=== PATIENT | female | born 1950 | race Two or more races ===

== ENCOUNTER 2017-10-10 13:42 | Emergency (ER) | payer SELFPAY ==
[~2017-10-10] VITALS: Ht 160 cm; Wt 60.0 kg
[2017-10-10] MEDS ORDERED: METF500T6 PO (13:50)
[2017-10-10] MEDS ORDERED: IBUPROFEN 600MG TABLET PO ONE (14:45)
[2017-10-10 15:04] VITALS: BP 145/94
== END 2017-10-10 19:34 | disposition home or self-care (01) ==
LOC: ER 13:42
DX: S82.291A Other fracture of shaft of right tibia, initial encounter for closed fracture (principal); M25.521 Pain in right elbow; I10 Essential (primary) hypertension; E11.9 Type 2 diabetes mellitus without complications; Z79.899 Other long term (current) drug therapy; W19.XXXA Unspecified fall, initial encounter; Y93.89 Activity, other specified; Y92.89 Other specified places as the place of occurrence of the external cause; Y99.8 Other external cause status
CPT/HCPCS: 29515; 73080; 73562; 73610; 73630; 82962; 99284

== ENCOUNTER 2021-02-19 13:31 | Inpatient (IN) | payer OTHER ==
[~2021-02-19] VITALS: Ht 157.5 cm; Wt 72.1 kg
[~2021-02-19 13:31] MED LIST: METF-414 PO
[2021-02-19] MEDS ORDERED: LIDOCAINE HCL 1% 20ML VIAL (Pyxis) INJ INFIL ONE (17:15)
[2021-02-19] MEDS ORDERED: LIDOCAINE HCL 1% 10 MG/ML 10ML VIAL IJ SCH (17:26)
[2021-02-19 18:13] LABS: BASOPHILS % 0.8 % (0.0-2.0); EOSINOPHILS % 14.1 % (0.0-5.0); HEMATOCRIT. 40.6 % (36.0-48.0); HEMOGLOBIN. 12.9 g/dL (12.0-16.0); MEAN CORPUSCULAR HEMOGLOBIN 26.8 pg (28.0-32.0); MEAN CORPUSCULAR VOLUME 84.7 fL (81.0-99.0); MEAN PLATELET VOLUME 7.2 fl (7.4-10.4); MONOCYTES % 3.5 % (2.0-8.0); NEUTROPHILS % 63.6 % (40.0-76.0); PLATELET 351 x1000/uL (130-400); RED BLOOD CELL COUNT 4.79 mill/uL (4.2-5.4); RED CELL DISTRIBUTION WIDTH 13.7 % (11.6-14.6)
[2021-02-19 18:20] LABS: CHLORIDE 105 mEq/L (98-107)
[2021-02-20] MEDS ORDERED: NALOXONE HCL 0.4MG/ML VIAL IV PRN (04:30)
[2021-02-20] MEDS: MORPHINE SULFATE 2 MG/ML CPJ (NOT FOR IM USE) IV PRN ×3 (04:45→17:48)
[2021-02-20 09:30] VITALS: BP 107/66
[2021-02-20] MEDS ORDERED: METF-873 MT (09:40)
[2021-02-20 09:47] VITALS: BP 107/66
[2021-02-20] MEDS ORDERED: HYDROCODONE/ACETAMINOPHEN 5/325MG TABLET PO PRN (11:00)
[2021-02-20] MEDS ORDERED: DOCUSATE SODIUM 100MG CAPSULE PO PRN (11:00)
[2021-02-20] MEDS ORDERED: NA PHOS,M-B/NA PHOS,DI-BA ENEMA 118ML PR PRN (11:00)
[2021-02-20] MEDS ORDERED: GUAIFENESIN 200MG/10ML SUGAR FREE UDC PO PRN (11:00)
[2021-02-20] MEDS ORDERED: LORAZEPAM 0.5MG TABLET PO PRN (11:00)
[2021-02-20] MEDS ORDERED: ACETAMINOPHEN 325MG TABLET PO PRN (11:00)
[2021-02-20] MEDS ORDERED: MAGNESIUM/ALUMINUM HYDROXIDE/SIMETHICONE 30ML UDC PO PRN (11:00)
[2021-02-20] MEDS ORDERED: IPRATROPIUM/ALBUTEROL 0.5-3(2.5)MG/3ML NEB NEB PRN (11:00)
[2021-02-20] MEDS ORDERED: DIPHENHYDRAMINE 50MG/ML VIAL IV PRN (11:00)
[2021-02-20] MEDS ORDERED: CEFTRIAXONE 1 G PREMIX 50 ML IV SCH (11:00)
[2021-02-20] MEDS ORDERED: ACETAMINOPHEN 650MG SUPP PR PRN (11:00)
[2021-02-20] MEDS ORDERED: CLONIDINE 0.1MG TABLET PO PRN (11:00)
[2021-02-20] MEDS ORDERED: DEXTROSE 50% WATER 50ML SYRINGE IV PRN (11:00)
[2021-02-20] MEDS ORDERED: ONDANSETRON HCL 4MG/2ML INJ IV PRN (11:00)
[2021-02-20 12:00] VITALS: BP 113/80
[2021-02-20] MEDS: BLOOD SUGAR DIAGNOSTIC STRIP TEST SCH ×3 (12:20→20:35)
[2021-02-20] MEDS: INSULIN LISPRO 100 UNITS/ML SUBCUT SCH ×3 (12:56→20:36)
[2021-02-20] MEDS: CEFTRIAXONE 1,000 MG in DEXTROSE 5% WATER 50 ML IV SCH (12:58)
[2021-02-20 13:10] LABS: BASOPHILS % 0.8 % (0.0-2.0); EOSINOPHILS % 14.2 % (0.0-5.0); HEMATOCRIT. 37.9 % (36.0-48.0); HEMOGLOBIN. 12.2 g/dL (12.0-16.0); LYMPHOCYTES % 23.7 % (20.0-50.0); MEAN CORPUSCULAR HEMOGLOBIN 27.2 pg (28.0-32.0); MEAN CORPUSCULAR VOLUME 84.2 fL (81.0-99.0); MONOCYTES % 5.9 % (2.0-8.0); NEUTROPHILS % 55.4 % (40.0-76.0); PLATELET 299 x1000/uL (130-400); RED BLOOD CELL COUNT 4.51 mill/uL (4.2-5.4); RED CELL DISTRIBUTION WIDTH 13.5 % (11.6-14.6)
[2021-02-20 13:18] LABS: CHLORIDE 104 mEq/L (98-107)
[2021-02-20 16:00] VITALS: BP 150/72
[2021-02-20 16:24] LABS: CREATINE KINASE 145 IU/L (26-192)
[2021-02-20 16:30] LABS: CREATINE KINASE MB FRACTION 2.3 ng/mL (0.5-3.6)
[2021-02-20 19:27] LABS: CLARITY URINE CLEAR (CLEAR); COLOR URINE YELLOW (YELLOW); KETONES URINE 1+ (NEGATIVE); LEUKOCYTE ESTERASE URINE 2+ (NEGATIVE); NITRITE URINE NEGATIVE (NEGATIVE); OCCULT BLOOD URINE NEGATIVE (NEGATIVE); PROTEIN URINE NEGATIVE (NEGATIVE); SPECIFIC GRAVITY URINE 1.016 (1.005-1.030); UROBILINOGEN URINE 0.2 E.U./dL (0.2-1.0)
[2021-02-20 19:39] LABS: *AMPHETAMINES SCREEN URINE NEGATIVE (NEGATIVE); *BARBITURATES SCREEN URINE NEGATIVE (NEGATIVE); *BENZODIAZEPINES SCREEN URINE NEGATIVE (NEGATIVE); *COCAINE SCREEN URINE NEGATIVE (NEGATIVE); METHADONE URINE SCREEN NEGATIVE (NEGATIVE); OPIATES URINE SCREEN PRESUMTIVE POSITIVE (NEGATIVE)
[2021-02-20 19:40] LABS: CANNABINOID URINE SCREEN NEGATIVE (NEGATIVE); PHENCYCLIDINE URINE SCREEN NEGATIVE (NEGATIVE)
[2021-02-20 20:00] VITALS: BP 141/72
[2021-02-20] MEDS ORDERED: FAMOTIDINE 20MG TABLET PO SCH (21:00)
[2021-02-20 23:57] VITALS: BP 138/70
[2021-02-21 00:18] LABS: CREATINE KINASE 174 IU/L (26-192)
[2021-02-21 00:19] LABS: CREATINE KINASE MB FRACTION 2.6 ng/mL (0.5-3.6)
[2021-02-21] MEDS: MORPHINE SULFATE 2 MG/ML CPJ (NOT FOR IM USE) IV PRN (01:44)
[2021-02-21 04:00] VITALS: BP 124/68
[2021-02-21] MEDS: BLOOD SUGAR DIAGNOSTIC STRIP TEST SCH ×4 (06:35→21:00)
[2021-02-21] MEDS: INSULIN LISPRO 100 UNITS/ML SUBCUT SCH ×4 (06:35→21:00)
[2021-02-21] MEDS ORDERED: LIDOCAINE HCL/EPINEPHRINE 1%-EPI 1:100,000 20 ML VIAL ONE (07:02)
[2021-02-21] MEDS ORDERED: SODIUM CHLORIDE 0.9% INJ 10ML FLUSH IVF ONE (07:03)
[2021-02-21] MEDS ORDERED: POLYMYXIN B SULFATE 500000 UNITS/VIAL ONE (07:03)
[2021-02-21] MEDS ORDERED: VANCOMYCIN HCL 1 GM/VIAL ONE (07:03)
[2021-02-21] MEDS ORDERED: SODIUM CHLORIDE 0.9% IRRIG SOL 1,000 ML IR ONE (07:03)
[2021-02-21 07:18] LABS: BASOPHILS % 0.6 % (0.0-2.0); EOSINOPHILS % 12.9 % (0.0-5.0); HEMOGLOBIN. 12.6 g/dL (12.0-16.0); LYMPHOCYTES % 27.2 % (20.0-50.0); MEAN CORPUSCULAR HEMOGLOBIN 27.9 pg (28.0-32.0); MONOCYTES % 6.1 % (2.0-8.0); NEUTROPHILS % 53.2 % (40.0-76.0); PLATELET 313 x1000/uL (130-400); RED BLOOD CELL COUNT 4.52 mill/uL (4.2-5.4); RED CELL DISTRIBUTION WIDTH 13.5 % (11.6-14.6)
[2021-02-21 07:28] LABS: CHLORIDE 105 mEq/L (98-107)
[2021-02-21] MEDS ORDERED: PROPOFOL 10MG/ML 100ML 0 ML IV ONE (07:35)
[2021-02-21] MEDS ORDERED: PROPOFOL 10MG/ML 100ML 100 ML IV ONE (07:36)
[2021-02-21] MEDS ORDERED: PROPOFOL 200MG/20ML VIAL IV ONE (07:37)
[2021-02-21 07:38] LABS: LDL CHOLESTEROL 68 mg/dL (5-100)
[2021-02-21] MEDS ORDERED: MIDAZOLAM HCL 2 MG/2 ML VIAL ONE (07:38)
[2021-02-21 07:41] LABS: HDL CHOLESTEROL 76 mg/dL (40-59); T4 FREE 1.25 ng/dL (0.76-1.46)
[2021-02-21] MEDS ORDERED: PHENYLEPHRINE HCL 10 MG/ML 1ML (IV VIAL) IV ONE (07:59)
[2021-02-21] MEDS ORDERED: SODIUM CHLORIDE 0.9% 10ML VIAL ONE (08:14)
[2021-02-21] MEDS ORDERED: ONDANSETRON HCL 4MG/2ML INJ ONE (08:15)
[2021-02-21] MEDS ORDERED: CEFAZOLIN SODIUM 1000MG/VIAL ONE (08:15)
[2021-02-21] MEDS ORDERED: KETOROLAC 30MG/ML VIAL ONE ×2 (08:15→08:16)
[2021-02-21] MEDS ORDERED: FENTANYL CITRATE/PF 50MCG/ML 2ML VIAL ONE (08:16)
[2021-02-21] MEDS ORDERED: FENTANYL CITRATE/PF 50MCG/ML 2ML VIAL IV PRN (08:30)
[2021-02-21] MEDS ORDERED: HYDROMORPHONE HCL/PF 2MG/ML CPJ IV PRN (08:30)
[2021-02-21] MEDS ORDERED: ONDANSETRON HCL 4MG/2ML INJ IV PRN (08:30)
[2021-02-21] MEDS: CEFTRIAXONE 1,000 MG in DEXTROSE 5% WATER 50 ML IV SCH (11:49)
[2021-02-21 12:00] VITALS: BP 130/59
[2021-02-21 16:00] VITALS: BP 133/67
[2021-02-21] MEDS ORDERED: HYDR-4001 MT (16:59)
[2021-02-21 20:00] VITALS: BP 155/71
[2021-02-21] MEDS ORDERED: REGADENOSON 0.4 MG/5 ML IV NR (21:15)
[2021-02-21 22:24] VITALS: BP 142/72
== END 2021-02-21 23:25 | disposition home health service (06) | DRG 511 ==
LOC: ER 13:40 → 6WST 23:48 → ENRESERV 02-20 07:24
PROVIDERS: ADMIT Internal Medicine; ATTEND Internal Medicine
PROC: 0PSJXZZ Reposition Left Radius, External Approach (ICD-10-PCS; 2021-02-19)
PROC: 0PSJ04Z Reposition Left Radius with Internal Fixation Device, Open Approach (ICD-10-PCS; principal; 2021-02-21)
DX: S52.502A Unspecified fracture of the lower end of left radius, initial encounter for closed fracture (principal); S82.001A Unspecified fracture of right patella, initial encounter for closed fracture; N39.0 Urinary tract infection, site not specified; I50.32 Chronic diastolic (congestive) heart failure; S02.2XXA Fracture of nasal bones, initial encounter for closed fracture; W18.30XA Fall on same level, unspecified, initial encounter; Z20.822 Contact with and (suspected) exposure to COVID-19; E11.65 Type 2 diabetes mellitus with hyperglycemia; W18.39XA Other fall on same level, initial encounter; Y93.89 Activity, other specified; Y92.89 Other specified places as the place of occurrence of the external cause; Y99.8 Other external cause status; G90.9 Disorder of the autonomic nervous system, unspecified
CPT/HCPCS: 36415; 70160; 70551; 71045; 71275; 72170; 73100; 73562; 76000; 80053; 80061; 80305; 81003; 82550; 82553; 82962; 83036; 84439; 84443; 84484; 85025; 85379; 86850; 86900; 87426; 93306; 93970; 97162; 99285; C1893; J0690; J0696; J1815; J1885; J2250; J2270; J2370; J2405; J2704; J3010; J3370; J3490; J7060; L1830